=== PATIENT | female | born 1990 | race Caucasian/White ===

== ENCOUNTER 2016-12-20 12:43 | Day surgery (SDC) | payer BC ==
[~2016-12-20] VITALS: Ht 167.6 cm; Wt 68.1 kg
[2016-12-20 13:21] VITALS: Ht 167.6 cm; Wt 68.1 kg
[2016-12-20 14:45] VITALS: BP 103/51; PULSE 49; RESP 12
[2016-12-20] MEDS ORDERED: LIDOCAINE 2% (SDV) 5 ML INJ ONE (14:52)
[2016-12-20] MEDS ORDERED: PROPOFOL 40 ML ONE (14:52)
[2016-12-20] MEDS ORDERED: GLYCOPYRROLATE 0.4 MG INJ ONE (14:59)
[2016-12-20 16:20] VITALS: BP 105/69; PULSE 48; RESP 14
--- NOTE | 2016-12-21 14:40 | GILP ---
DATE OF PROCEDURE: 12/20/2016 NAME OF PROCEDURE: Esophagogastroduodenoscopy with biopsies. SURGEON: Nathaly Iverson MD PREOPERATIVE DIAGNOSIS: POSTOPERATIVE DIAGNOSIS: BRIEF HISTORY AND INDICATIONS: The patient is being evaluated for abdominal pain and GERD symptoms. PREMEDICATION: Monitored anesthesia care. INSTRUMENT USED: Olympus panendoscope. TECHNIQUE: After informed consent, with the patient/relatives understanding the procedure, its indic ations, potential risks and complications, including but not limited to: allergic reaction, bleeding , perforation or infection, and after all pertinent questions were answered to the patient's satisfa ction, the patient/relatives signed witnessed informed consent. Following this, premedication was administered slowly IV push under careful cardiovascular and respi ratory monitoring with pulse oximetry, automatic blood pressure and radiation monitor. Once the sedative effect was achieved the patient was place in the left lateral decubitus, the panen doscope was introduced and advanced under visual control. Careful examination of the upper gastrointestinal tract, both on insertion as well as withdrawal of the instrument disclosed the following findings: ESOPHAGUS: The distal esophagus shows erythema and edema of the mucosa with superficial erosion. STOMACH: Upon entrance to the stomach, air was insufflated, the gastric santos distended normally. There is erythema and edema of the mucosa of a moderate degree. Biopsies were obtained to rule out H pylori infection. PYLORUS: The pylorus appears patent and within normal limits, with no evidence of gastric outlet ob struction. DUODENUM: The duodenal mucosa was carefully examined in the duodenal bulb as well as the second por tion of the duodenum and appears unremarkable with no evidence of duodenitis, ulcer or neoplasm. The instrument was then withdrawn, the patient tolerated the procedure well and was transfer out of the endoscopy suite awake, and in good condition to continue recovery under observation IMPRESSION: 1. Erosive esophagitis. 2. Gastritis, rule out Helicobacter pylori infection, biopsies obtained. PLAN: The patient will be treated with PPIs. Further recommendation will depend on the patient's c linical course as well as review of biopsies. Dictated By: NATHALY IVERSON MS/JAME Conf#: [id number] DID#: [id number]
--- NOTE | 2016-12-21 14:43 | GILP ---
DATE OF PROCEDURE: 12/20/2016 PROCEDURE: Colonoscopy with biopsies. HISTORY AND INDICATIONS: The patient is being evaluated for changes in bowel habits and abdominal p ain. PREMEDICATION: Monitored anesthesia care by anesthesiologist. SURGEON: Nathaly Iverson MD INSTRUMENT USED: Olympus colonoscope. TECHNIQUE: After informed consent, with the patient/relatives understanding the procedure, its indic ations potential risks and complications, including but not limited to: allergic reaction, bleeding, perforation, infection, missed lesions and after all pertinent questions were answered to the patie nt's satisfaction, the patient/relatives signed the witnessed informed consent. Following this, premedication was administered slowly IV push by under careful cardiovascular and re spiratory monitoring with pulse oximetry, automatic blood pressure and youth nutritional monitor. Once the sedativ e effect was achieved, the patient was placed in the left lateral decubitus position, digital rectal examination was performed. The colonoscope was then introduced and advanced under visual control th roughout all segments of the colon including: the rectum, sigmoid, descending colon, splenic flexure , transverse colon, hepatic flexure, ascending colon and finally reaching the cecum which was clearl y identified by transillumination, finger indentation and the ileocecal valve. Careful examination o f the mucosa of the lower gastrointestinal tract both on insertion as well as withdrawal of the inst rument disclosed the following findings: Rectal Examination: No evidence of perirectal disease, no masses. Colonic Mucosa: Unremarkable throughout. The ileocecal valve was clearly identified and appears unr emarkable. The instrument was withdrawn, reexamining the mucosa in detail. No additional abnormali ties are noted. Random biopsies were obtained in the right and left side of the colon to rule out m icroscopic, lymphocytic, or collagenous colitis. Moderate sized internal hemorrhoids are noted on w ithdrawal of the instrument through the anal canal. The instrument was then withdrawn, the patient tolerated the procedure well and was transferred out of the Endoscopy Suite awake and in good condition to continue recovery under observation. IMPRESSION: 1. Normal colonic mucosa, rule out microscopic, lymphocytic, or collagenous colitis. Biopsies obta ined, right and left colon, randomly. 2. Moderate-sized internal hemorrhoids. PLAN: The patient will continue present regimen. Pathology will be reviewed as soon as available. Further recommendation will depend on the patient's clinical course as well as review of biopsies . Dictated By: NATHALY IVERSON MS/NTS Conf#: [id number] DID#: [id number]
== END 2016-12-20 15:50 | disposition home or self-care (01) ==
LOC: GIL 12:43
PROVIDERS: ATTEND Internal Medicine Gastroenterology
DX: R19.4 Change in bowel habit (principal); K64.8 Other hemorrhoids; K20.8 Other esophagitis; K29.70 Gastritis, unspecified, without bleeding
CPT/HCPCS: 43239; 45380; 84703; 88305; 88312; Z7610